=== PATIENT | male | born 1960 | race Caucasian/White ===

== ENCOUNTER 2022-12-30 13:44 | Outpatient (REF) | payer OTHER, SELFPAY ==
[2022-12-30 14:38] LABS: Anion Gap 9.3 mmol/L (3-11); BUN 18 mg/dL (7-18); CO2 27.7 mmol/L (21.0-32.0); CREATININE 0.9 mg/dL (0.70-1.30); Calcium 9.1 mg/dL (8.5-10.1); Calculated LDL 119 mg/dL (<100); Chloride 103 mmol/L (98-107); Cholesterol 199 mg/dL (<200); Estimated GFR 95.37 (mL/min/1.73m2); Glucose 96 mg/dL (74-106); HDL Cholesterol 70 mg/dL (40-60); Potassium 4.5 mmol/L (3.5-5.1); Sodium 140 mmol/L (136-145); Triglyceride 51 mg/dL (<150)
== END 2022-12-30 13:45 | disposition home or self-care (01) ==
LOC: NCHCN 13:44
PROVIDERS: Visit Provider Family Medicine
DX: Z00.00 Encounter for general adult medical examination without abnormal findings (principal); Z82.49 Family history of ischemic heart disease and other diseases of the circulatory system; Z13.6 Encounter for screening for cardiovascular disorders
CPT/HCPCS: 80048; 80061

== ENCOUNTER 2023-12-24 15:12 | Outpatient (REF) | payer MEDICARE, OTHER, SELFPAY ==
[2023-12-24 15:01] LABS: Vitamin D 25 Total 47.4 ng/mL (30-100)
[2023-12-24 15:03] LABS: Anion Gap 6.6 mmol/L (3-11); BUN 17 mg/dL (7-18); CO2 30.4 mmol/L (21.0-32.0); CREATININE 0.9 mg/dL (0.70-1.30); Calcium 9.3 mg/dL (8.5-10.1); Calculated LDL 98 mg/dL (<100); Chloride 106 mmol/L (98-107); Cholesterol 177 mg/dL (<200); Estimated GFR 94.78 (mL/min/1.73m2); Glucose 93 mg/dL (74-106); HDL Cholesterol 73 mg/dL (40-60); Potassium 4.2 mmol/L (3.5-5.1); Sodium 143 mmol/L (136-145); Triglyceride 34 mg/dL (<150); Vitamin B12 496 pg/mL (193-986)
[2023-12-24 22:17] LABS: PSA, Diagnostic 3.4 ng/mL (<=4.5)
== END 2023-12-24 15:13 | disposition home or self-care (01) ==
LOC: NCHCN 15:12
PROVIDERS: Visit Provider Family Medicine
DX: Z00.00 Encounter for general adult medical examination without abnormal findings (principal); E55.9 Vitamin D deficiency, unspecified
CPT/HCPCS: 80048; 80061; 82306; 82607; 84153

== ENCOUNTER 2025-06-27 07:38 | Outpatient (REF) | payer MEDICARE, OTHER, SELFPAY ==
[2025-06-27 15:49] LABS: ALT 26 U/L (16-63); AST 28 U/L (15-37); Albumin 3.7 g/dL (3.4-5.0); Alkaline Phosphatase 73 U/L (46-116); Anion Gap 5.7 mmol/L (3-11); BUN 20 mg/dL (7-18); Bilirubin, Total 1.3 mg/dL (0.2-1.0); CO2 30.3 mmol/L (21.0-32.0); Calcium 9.3 mg/dL (8.5-10.1); Chloride 103 mmol/L (98-107); Cholesterol 182 mg/dL (<200); Glucose 91 mg/dL (74-106); HDL Cholesterol 64 mg/dL (>or=40); Potassium 4.6 mmol/L (3.5-5.1); Sodium 139 mmol/L (136-145); Total Protein 7.4 g/dL (6.4-8.2)
[2025-06-27 23:14] LABS: PSA, Screening 2.0 ng/mL (<=4.5)
== END 2025-06-27 07:39 | disposition home or self-care (01) ==
LOC: NCHCN 07:38
PROVIDERS: Visit Provider Family Medicine
DX: E78.00 Pure hypercholesterolemia, unspecified (principal); Z12.5 Encounter for screening for malignant neoplasm of prostate
CPT/HCPCS: 80053; 80061; 84153